=== PATIENT | male | born 1935 | race Caucasian/White ===

== ENCOUNTER 2020-04-12 11:55 | Emergency (ER) | payer OTHER ==
[~2020-04-12] VITALS: Ht 177.8 cm; Wt 60.5 kg
[2020-04-12 11:59] VITALS: Ht 177.8 cm; Wt 60.5 kg
[2020-04-12] MEDS ORDERED: QUESTRAN LIG1 PACKET (12:00)
[2020-04-12] MEDS ORDERED: ZOLOFT50 MG (12:01)
[2020-04-12] MEDS ORDERED: ZOFRAN8 MG (12:01)
[2020-04-12] MEDS ORDERED: BOUDREAUXS BUTT60 GM (12:01)
[2020-04-12] MEDS ORDERED: HYDROCODON-ACE1 EAC7 (12:01)
[2020-04-12] MEDS ORDERED: ANUSOL-HC 2.5%30 GM (12:01)
[2020-04-12] MEDS ORDERED: PINK BISMUTH (12:01)
[2020-04-12] MEDS ORDERED: METHOTREXATE2.5 MG (12:02)
[2020-04-12] MEDS ORDERED: PROTEINEX (12:02)
[2020-04-12] MEDS ORDERED: OMEPRAZOLE20 M1 (12:02)
[2020-04-12] MEDS ORDERED: COLACE100 MG (12:02)
[2020-04-12] MEDS ORDERED: CLARITIN 10 MG10 MG (12:02)
[2020-04-12] MEDS ORDERED: SYNTHROID50 MCG (12:02)
[2020-04-12] MEDS ORDERED: [UNRECOGNIZED DRUG - OTHER] (12:03)
[2020-04-12 12:50] LABS: BASOPHILS 0.3 % (0-2); EOSINOPHILS 0.5 % (0-7); HEMATOCRIT 34.9 % (42.0-54.0); HEMOGLOBIN 11.3 g/dL (13.5-17.5); IMMATURE GRANULOCYTES 0.2 % (0-5); LYMPHOCYTES 14.4 % (15-50); MCH 31.8 pg (26.0-34.0); MCHC 32.4 g/dL (31.0-37.0); MCV 98.3 fL (80.0-100.0); MEAN PLATELET VOLUME 10.8 fL (7.4-10.4); MONOCYTES 4.5 % (2-11); NEUTROPHILS 80.1 % (40-80); PLATELET COUNT 197 10x3/uL (130-400); RBC 3.55 10x6/uL (4.20-6.10); RDW 17.4 % (11.5-14.5); WBC 6.2 10x3/uL (4.8-10.8)
[2020-04-12 12:52] LABS: ANION GAP 6.6 mmol/L (8-16); CALCIUM 8.4 mg/dL (8.5-10.1); CARBON DIOXIDE 27.7 mmol/L (21.0-32.0); CREATININE - SERUM 1.3 mg/dL (0.6-1.3); POTASSIUM - SERUM 4.3 mmol/L (3.5-5.1)
[2020-04-12 12:55] LABS: INR 1.74 (0.85-1.17); PROTIME 20.2 SECONDS (11.6-15.0)
[2020-04-12 12:58] LABS: ALBUMIN 2.6 g/dL (3.4-5.0); BILIRUBIN - TOTAL 0.6 mg/dL (0.2-1.3); PROTEIN - SERUM 6.1 g/dL (6.4-8.2)
[2020-04-12 15:52] VITALS: BP 114/74
== END 2020-04-12 15:52 | disposition other institution (70) ==
LOC: D.ER 11:55
PROVIDERS: Family Medicine
DX: D50.0 Iron deficiency anemia secondary to blood loss (chronic) (principal); E03.9 Hypothyroidism, unspecified

== ENCOUNTER 2020-04-25 22:07 | Emergency (ER) | payer OTHER ==
[~2020-04-25] VITALS: Ht 177.8 cm; Wt 64.5 kg
[~2020-04-25 22:07] MED LIST: ANUSOL-HC 2.5%30 GM; BOUDREAUXS BUTT60 GM; CLARITIN 10 MG10 MG; COLACE100 MG; HYDROCODON-ACE1 EAC7; METHOTREXATE2.5 MG; OMEPRAZOLE20 M1; PINK BISMUTH; PROTEINEX; QUESTRAN LIG1 PACKET; SYNTHROID50 MCG; ZOFRAN8 MG; ZOLOFT50 MG; [UNRECOGNIZED DRUG - OTHER]
[2020-04-25 22:10] VITALS: Ht 177.8 cm; Wt 64.5 kg
[2020-04-25 23:13] LABS: HEMATOCRIT 27.5 % (42.0-54.0); HEMOGLOBIN 8.4 g/dL (13.5-17.5); MCH 31.6 pg (26.0-34.0); MCHC 30.5 g/dL (31.0-37.0); MCV 103.4 fL (80.0-100.0); MEAN PLATELET VOLUME 10.8 fL (7.4-10.4); RBC 2.66 10x6/uL (4.20-6.10); RDW 17.4 % (11.5-14.5); WBC 2.2 10x3/uL (4.8-10.8)
[2020-04-25 23:17] LABS: PLATELET COUNT 121 10x3/uL (130-400)
[2020-04-25 23:38] LABS: INR 1.68 (0.85-1.17); PROTIME 19.6 SECONDS (11.6-15.0)
[2020-04-25 23:40] LABS: CALC OSMOLALITY 296 mosm/kg (275-300); CALCIUM 7.8 mg/dL (8.5-10.1); CARBON DIOXIDE 25.1 mmol/L (21.0-32.0); CHLORIDE - SERUM 114 mmol/L (98-107); GLUCOSE 102 mg/dL (74-106); POTASSIUM - SERUM 4.1 mmol/L (3.5-5.1); SODIUM 145 mmol/L (136-145); UREA NITROGEN 34 mg/dL (7-18); eGFR NON AFRICAN AMERICAN 34 mL/min (90-120)
[2020-04-26 00:01] LABS: ALKALINE PHOSPHATASE 92 U/L (30-120); ALT (SGPT) 22 U/L (10-68); BILIRUBIN - TOTAL 1.86 mg/dL (0.2-1.3); C-REACTIVE PROTEIN 6.9 mg/dL (0.0-0.9); CKMB 0.9 U/L (0.0-3.6); CREATINE KINASE 28 UL (21-232); LIPASE 189 U/L (73-393); PROTEIN - SERUM 4.9 g/dL (6.4-8.2)
[2020-04-26 00:20] LABS: LYMPHOCYTES 25 % (15-50); MONOCYTES 1 % (2-11); NEUTROPHILS 71 % (40-80); PLATELET ESTIMATE NORMAL
[2020-04-26 00:21] LABS: BILIRUBIN NEGATIVE (NEGATIVE); KETONE NEGATIVE (NEGATIVE); NITRITE NEGATIVE (NEGATIVE); UROBILINOGEN NORMAL mg/dL (< 2)
[2020-04-26 00:22] LABS: BACTERIA MODERATE HPF (NONE SEEN); EPITHELIAL CELLS 0-5 /hpf (0-5); WHITE CELLS - URINE 25-50 HPF (0-1)
[2020-04-26 02:52] VITALS: BP 86/56
== END 2020-04-26 02:39 | disposition other institution (70) ==
LOC: D.ER 22:07
PROVIDERS: Emergency Medicine
DX: A41.9 Sepsis, unspecified organism (principal); N17.9 Acute kidney failure, unspecified; D64.9 Anemia, unspecified; Z79.01 Long term (current) use of anticoagulants; E83.51 Hypocalcemia; K92.2 Gastrointestinal hemorrhage, unspecified; I82.429 Acute embolism and thrombosis of unspecified iliac vein; D69.6 Thrombocytopenia, unspecified; N39.0 Urinary tract infection, site not specified; F03.90 Unspecified dementia, unspecified severity, without behavioral disturbance, psychotic disturbance, mood disturbance, and anxiety; R11.2 Nausea with vomiting, unspecified; R50.9 Fever, unspecified

== ENCOUNTER → 2021-01-16 09:45 | Day surgery (SDC) | payer OTHER ==
[2020-04-25 22:10] VITALS: BMI 20.4
--- NOTE | 2021-01-20 15:17 | NUR ---
LATE ENTRY FOR EVENT ON 01/16/21 @ 1015. [facility] PT PLACED IN [facility] FOR A ROOM TO BE AVAILABLE. EXPLAINED TO GUARDS THAT WE WOULD GET THEM IN A ROOM SOON ONE BECOMES AVAILABLE. ASKED HOW LONG IT WOULD BE, EXPLAINED THAT HE WAS SCHEDULED FOR 999, AND HE WOULD BE WORKED INTO THE SCHEDULE FOR TUESDAY. GUARDS DECIDED NOT TO WAIT, SO LEFT WITH OUT BEING SEEN.
== END | disposition home or self-care (01) ==
LOC: D.OPS 09:00
PROVIDERS: ATTEND Surgery
DX: H93.8X1 Other specified disorders of right ear (principal); Z53.21 Procedure and treatment not carried out due to patient leaving prior to being seen by health care provider